=== PATIENT | female | born 1995 | race Caucasian/White ===

== ENCOUNTER 2019-10-07 13:39 | Outpatient (CLI) | payer SELFPAY ==
[2019-10-09 17:35] LABS: COVID-19 RT-PCR UVMMC Result Negative (Negative)
== END 2019-10-07 13:59 ==
PROVIDERS: PCP Pediatrics; Visit Provider Nurse Practitioner Adult Health
DX: Z11.59 Encounter for screening for other viral diseases (principal)
CPT/HCPCS: U0003

== ENCOUNTER 2020-02-13 14:36 | Outpatient (REF) | payer SELFPAY ==
[2020-02-14 01:35] LABS: COVID-19 RT-PCR UVMMC Result Negative (Negative)
== END 2020-02-13 14:56 ==
LOC: LBN 14:36
PROVIDERS: PCP Pediatrics; Visit Provider Nurse Practitioner Adult Health
DX: Z11.59 Encounter for screening for other viral diseases (principal)
CPT/HCPCS: U0003

== ENCOUNTER 2020-02-19 14:59 | Outpatient (REF) | payer SELFPAY ==
--- OUTSIDE RECORDS SUMMARY | 2020-02-19 15:03 | XMS_ITS ---
:1995 Author Care Team Providers Name Role Phone ALAN LEONARD Credit Cashier [phone] Allergies Code Code System Name Reaction Severity Status Onset NKDA ? Medications Name Status Start Date Stop Date ? ? amitriptyline 10 mg tablet Completed ? 12/03 Take 1 tablet every day by oral route. amitriptyline 25 mg tablet Completed ? 04/23 Take 1 tablet every day by oral route. bupropion HCl SR 100 mg tablet,12 hr sustained-release Completed ? 11/18/2017 Take 1 tablet every day by oral route in the evening. bupropion HCl XL 150 mg 24 hr tablet, extended release Completed ? 11/18/2017 Take 1 tablet every day by oral route. Depo-Provera 150 mg/mL intramuscular suspension Completed ? 04/23/2017 Inject 1 mL every 3 months by intramuscular route. Imitrex 25 mg tablet Completed ? 12/03/2016 Take 1 tablet by oral route as needed. Take one tablet at first sign of headac hes. May repeat once after one hour if headache persists. Loratadine-D 10 mg-240 mg tablet,extended release 24 hr Complete d ? 11/18/2017 Take 1 tablet every day by oral route. ProAir HFA 90 mcg/actuation aerosol inhaler Active ? Not available Inhale 2 puffs every 4 hours by inhalation route as needed. sumatriptan 50 mg tablet Completed ? 018 Take one table at onset headache, repeat once if headache persi sts. Zofran ODT 4 mg disintegrating tablet Completed ? 04/23/2017 Take 1 tablet every 6 hours by oral route as needed. Problems None recorded. Procedures None recorded. Results Lab Results Date Name Specimen Result Interpretation Description Value Range Status Address ? ? Rapid Flu ? Flu negative ? ? Main (A[facility]B) Office: [address], [place] ? Rapid Strep ? Strep negative ? ? [facility] Office: [address], [place] ? Urinalysis, ? Ph 5.0 ? ? Main Dipstick Office: [address], [place] ? ? ? Specific 1.020 ? ? Main [facility] Office: [address], [place] ? Vision Screen ? R Eye 20/20 ? ? [facility] Uncorrected Offic e: [address], [place] ? ? ? L Eye 20/20 ? ? Main Uncorrected Offic e: [address], [place] Past Encounters None recorded. Social History None recorded. Vaccine List Vaccine Type Td (adult), adsorbed 02/02/2018?0.5 mL Plan of Care Reminders Provider Appointments None ? ? recorded. Lab None ? ? recorded. Referral None ? ? recorded. Procedures None ? ? recorded. Surgeries None ? ? recorded. Imaging None ? ? recorded. Vitals 02/02/2018 01:00PM SICK VISIT Height 63 in 11/18/2017 02:30PM SICK VISIT Height Weight BMI 63 in 160 lbs 28.3 kg/m2 06/04/2017 09:00AM FOLLOW UP 30 Height Weight BMI Blood Pressure 63 in 156 lbs 16 oz 27.8 kg/m2 120/80 mm[Hg] 06/01/2017 10:45AM SICK VISIT Height Weight BMI 63 in 156 lbs 27.6 kg/m2 04/23/2017 10:15AM SICK VISIT Height Weight BMI 63 in 156 lbs 27.6 kg/m2 12/03/2016 09:45AM WELL CHILD EXAM Height Weight BMI Blood Pressure 63 in 147 lbs 26 kg/m2 120/80 mm[Hg] 2016 11:30AM FOLLOW UP 30 Weight 140 lbs 16 oz 09/09/2016 11:30AM FOLLOW UP 30 Weight Blood Pressure 139 lbs 16 oz 120/68 mm[Hg] 08/13/2016 09:30AM WCC 30 min Weight 138 lbs 07/08/2016 02:00PM SICK VISIT Weight 138 lbs 06/30/2016 09:30AM SICK VISIT Weight 138 lbs 09/11/2015 Height Weight BMI Blood Pressure 62.75 in 127 lbs 16 oz 22.9 kg/m2 100/60 mm[Hg] 05/18/2014 Height Weight BMI Blood Pressure 62.75 in 130 lbs 23.2 kg/m2 120/80 mm[Hg] 01/23/2010 Height Weight BMI Blood Pressure 58.25 in 122 lbs 16 oz 25.5 kg/m2 100/68 mm[Hg] 01/16/2009 Height Weight BMI Blood Pressure 55 in 97 lbs 16 oz 22.8 kg/m2 98/78 mm[Hg] 10/25/2007 Height Weight BMI Blood Pressure 51.5 in 80 lbs 16 oz 21.5 kg/m2 110/60 mm[Hg] 12/22/2006 Height Weight BMI Blood Pressure 49.25 in 55 lbs 16 oz 16.2 kg/m2 100/70 mm[Hg] 10/01/2005 Height Weight BMI Blood Pressure 47 in 51 lbs 16 oz 16.6 kg/m2 90/60 mm[Hg] 10/09/2004 Height Weight BMI Blood Pressure 45.25 in 46 lbs 15.8 kg/m2 90/72 mm[Hg] 09/17/2003 Height Weight BMI Blood Pressure 42.75 in 38 lbs 8 oz 14.8 kg/m2 92/64 mm[Hg] 09/27/2002 Height Weight BMI Blood Pressure 40.5 in 34 lbs 16 oz 15 kg/m2 88/70 mm[Hg] 04/26/2002 Height Weight BMI Blood Pressure 39.75 in 33 lbs 16 oz 15.1 kg/m2 90/70 mm[Hg]
== END 2020-02-19 15:19 ==
LOC: LBN 14:59
PROVIDERS: PCP Pediatrics; Visit Provider Nurse Practitioner Adult Health
DX: J10.1 Influenza due to other identified influenza virus with other respiratory manifestations (principal)
CPT/HCPCS: 87449

== ENCOUNTER 2020-03-21 20:15 | Outpatient (REF) | payer SELFPAY ==
[2020-03-22 21:39] LABS: COVID-19 RT-PCR UVMMC Result Negative (Negative)
== END 2020-03-21 20:16 | disposition home or self-care (01) ==
LOC: LBN 20:15
PROVIDERS: PCP Pediatrics; Visit Provider Nurse Practitioner Adult Health
DX: J10.1 Influenza due to other identified influenza virus with other respiratory manifestations (principal); Z20.822 Contact with and (suspected) exposure to COVID-19
CPT/HCPCS: 87449; U0003

== ENCOUNTER 2021-01-13 18:04 | Emergency (ER) | payer BC, SELFPAY ==
[2021-01-13] VITALS (38 sets, daily range): BP systolic 80–207; BP diastolic 51–182; PULSE 57–125; RESP 11–26; TEMP 37; O2SAT 96–100
--- NOTE | 2021-01-13 18:00 | RT.EKG_ITS ---
APPROVED REPORT Exam: Resting ECG Reason for Exam: chest pressure Patient Location: E HR:85 bpm ECG Measurements Heart Rate 85 AXIS NH 142 P 67 QRSd 77 QRS 80 QT 346 T 62 QTc 411 Conclusion Sinus arrhythmia...V-rate 68-106, variation>10% no acute ischemic findings
--- NOTE | 2021-01-13 18:15 | DI.RAD_ITS ---
Exam(s) XR CHEST 2V PA LATERAL EXAM: XR CHEST 2V PA LATERAL CLINICAL HISTORY: chest pain TECHNIQUE: 2D digital imaging was performed of the chest. Two images were obtained. PA and lateral views were obtained. COMPARISON: No exams were available for comparison FINDINGS: MEDIASTINUM: Normal. HEART: Normal. PULMONARY VASCULATURE: Normal. LUNGS: Clear. PLEURAL SPACE: No pleural effusion or pneumothorax. BONE:Within normal limits for the patient's age. OTHER FINDINGS:Normal. IMPRESSION: No acute pulmonary findings. DATA REPOSITORY: RADIATION DOSE DELIVERED:
--- NOTE | 2021-01-13 18:17 | ED.GENADUL_ITS ---
Discharge Plan Disposition Patient Disposition: AGAINST MEDICAL ADVICE Condition: Stable Discharge Details Clinical Impression: Chest pain, Abdominal pain Primary Care Provider: Unknown,Unknown ED Provider: Luis Carlos Santiago Home Meds and New Rx's Prescriptions: No Action No Known Home Meds RF: 0 Discharge Instructions Instructions: Chest Pain (ED) Additional Instructions: your blood work, ekg and xray studies did not show any significant abnormalities, you chose to leave prior to the cat scan results being back this could be your esophagus causing your pain such as an esophageal spasm follow up with your primary care provider within 1 week if you feel more ill, have severe worsening pain or difficulty breathing return to the emergency department Medical Decision Making 25 yo female with no chronic medical problems comes in with chest pain. She states she was at work sitting when about 30 minutes ago she had chest pressure. She states she experienced something similar a few days ago but wasn't as intense. Denies any fevers, cough, dyspnea, abdominal pain. She denies smoking, alcohol use or drug use. She is in no distress on exam speaking in full sentences. She has no rashes or other abnormalities of the chest wall. She localizes the pain to the anterior mid chest. She also states it radiates to the left arm. Denies back pain. She has no abdominal tenderness, has clear lung sounds and no murmurs. On bedside u/s she has no pericardial effusion and normal appearing ef of the left ventricle and no rv dilation. I suspect her symptoms could be esophageal spasm vs pleurisy vs possible pericarditis. She is wells low and perc negative. normal vascular exam and no tearing back pain so doubt dissec tion. Her heart score is 0, will obtain troponin. Will obtain cxr to evaluate for infiltrate and less likely pneumothorax. pt stable no significant change in pain with nitro and denies wanting any other pain medicine. Labs and xray unremarkable, will repeat troponin and ekg. given her low heart score if negative delta troponin/ecg feel she would be safe for outpatient management repeat troponin negative. She is now complaining of upper abdominal pain and states she doesn't think she can stand due to the pain. She also has nausea and she is now describing the pain as a tearing sensation. She is tender on exam now in the upper abdomen both sides, no guarding or rebound. Given her continued pain and now radiation into the abdomen will obtain cta to evaluate for dissection and possible cholecystitis patient returned from the ED and immediately requested d/c for family reasons. She has capacity to make her own decisions and understands risks of leaving prior to the imaging studies being read by radiology including possible and permanent disability and is willing to accept these risks. She is choosing to leave against my medical advise. She was advised to f/u with her pcp and she was also told she can return at any time if she changes her mind Differential Diagnosis Differential Diagnosis: esophageal spasm, nstemi, pleurisy Imaging Data Radiologic Study: Attestation: I personally reviewed and interpreted this imaging study as follows: Imaging: X-Ray Radiologist's impression: no acute findings Lab Data Lab results reviewed: Yes I reviewed the patient's lab results. ECG Data Attestation: I personally reviewed and interpreted this ECG (s) as follows: Prior ECG tracings: not available for review Interpretation: sinus rhythm, rate of 80, no acute st t wave ischemic findings 2nd ekg sinus rhythm, rate of 60, no acute st t wave ischemic findings HPI General Mode of arrival: ambulatory . Date/Time Provider Initiated Documentation: 01/13/21 18:10 . Limitations to Documentation: no limitations . Information obtained by: patient . History of Present Illness 25 year old F presents to the emergency department with the chief complaint of chest pain, described as moderate, with intensity rated at 6. Quality is described as other (pressure), and is localized to the chest. Patient reports no radiation. Patient started experiencing this minute(s) (30) and it has been intermittent. No relieving factors improve symptom(s), No exacerbating factors reported . Patient notes no other symptoms.. Patient did receive the following treatments prior to arrival, none Related Data Home Medications Medication Instructions Recorded Confirmed Unknown [No Known Home Meds] 01/13/21 01/13/21 Allergies Allergy/AdvReac Type Severity Reaction Status Date / Time No Known Allergies Allergy Unverified 01/13/21 18:18 Review of Systems All systems reviewed & are unremarkable except as noted in HPI and below Constitutional Constitutional: Denies chills, Denies fever(s) and Denies weakness Cardiovascular Cardiovascular: Denies dyspnea Respiratory Respiratory: Denies cough and Denies dyspnea Gastrointestinal Gastrointestinal: Denies abdominal pain, Denies nausea and Denies vomiting Musculoskeletal Musculoskeletal: Denies joint swelling Neurologic Neurologic: Denies weakness [facility] Active Problem List (Updated 01/13/21 @ 22:33 by Luis Carlos Santiago MD) Chest pain (Acute) Abdominal pain (Acute) Surgical History (Updated 01/13/21 @ 18:19 by Zulma Robles) History of cholecystectomy History of tonsillectomy Family History (Updated 08/30/20 @ 14:42 by Alla Serrano) Mother Depression Father Depression High cholesterol Sister Alcohol abuse Asthma Depression Substance abuse Sister Asthma Depression Substance abuse Brother Alcohol abuse Asthma Substance abuse Maternal Grandfather No problems noted. Paternal Grandfather Alcohol abuse Maternal Grandmother No problems noted. Paternal Grandmother Depression Social History (Updated 08/30/20 @ 14:40 by Alla Serrano) Smoking/Tobacco Use Status: Current every day Tobacco Type: e-cigarettes Tobacco: How many years used: 6 Quit status: has quit before Second Hand Exposure: Yes Smoking risk assessment performed?: Yes Alcohol Intake: current Alcohol Intake frequency: a few times a month Alcohol type: beer Drug use: Never Substance use type: does not use Caregiver/Support person: No Household members: significant other Communication Needs: None Pets and animals: Yes Pets and animals: cat(s) and dog(s) Sexually active: Yes Do you think of yourself as: lesbian/pena/homosexual Current gender identity: female What is your relationship status?: living with partner How often do you talk on the phone with friends or family?: twice per week How often do you get together with friends or relatives?: once per week Do you belong to any clubs or organized social groups?: no Panel score (0-1 are the most socially isolated patients): 2 Ghazala/Restorationism: No preference Seatbelt use: always Helmet use: Yes Helmet use: always Drive intox or ride w/intox car pick up driver: No Do you feel safe at home: Yes Do you feel safe in your relationship?: Yes Exam Const General: no acute distress Orientation: alert HENMT Head: normal to inspection Ears: external ears normal General nose exam: external nose normal Mouth: moist mucous membranes Eyes General: appearance normal, both eyes and all related structures Neck Neck: normal visual inspection Chest Chest: normal inspection of the chest Resp Effort & Inspection: normal respiratory effort and able to speak in complete sentences Cardio Rate: regular rate GI Palpation: soft and nontender Skin General skin exam: no rashes or lesions noted Neuro General: patient alert and patient oriented x3 Extrem General: normal to inspection Psych Mental Status: mental status grossly normal
[2021-01-13] MEDS: nitroGLYcerin 0.4 MG TAB SL (18:35)
[2021-01-13 18:46] LABS: Abs Immature Grans 0.02 10^3/uL (0.0-0.06); Absolute Basophil Count 0.04 10^3/uL (0.0-0.2); Absolute Eosinophil Count 0.15 10^3/uL (0.0-0.7); Absolute Monocyte Count 0.76 10^3/uL (0.1-0.8); Absolute Neutrophil Count 4.48 10^3/uL (1.2-6.7); Basophils % 0.5; Eosinophils % 1.7; HCT 39.3 % (36.0-46.0); HGB 13.2 g/dL (11.2-15.7); Immature Grans % 0.2; MCH 28.3 pg (27.0-33.0); MCHC 33.6 % (32.0-36.0); MCV 84.2 fL (80-95); MPV 10.9 fL (8.0-11.0); Monocytes % 8.8; Neutrophils % 51.8; Nucleated RBC 0 %; Platelet Count 263 10^3/uL (130-400); RBC 4.67 10^6/uL (3.93-5.22); RDW 11.8 % (11.7-14.6); RDW-SD 35.8 fL; WBC 8.65 10^3/uL (4.4-10.8)
[2021-01-13 18:47] LABS: Lipase 117 U/L (73-393)
--- NOTE | 2021-01-13 19:49 | SUR.PHASEI ---
pt c/o midsternal chestpain pt given nitro sl times one
--- NOTE | 2021-01-13 19:51 | DI.VRAD_ITS ---
PROCEDURE INFORMATION: Exam: XR Chest Exam date and time: 01/13/2021 6:27 PM Age: 25 years old Clinical indication: Chest pressure; Patient HX: Chest pain, pressure TECHNIQUE: Imaging protocol: XR of the chest. Views: 2 views. COMPARISON: No relevant prior studies available. FINDINGS: Lungs: The lungs are clear. There is no pulmonary vascular congestion. Pleural spaces: There are no pleural effusions present. There is no evidence of pneumothorax. Heart/Mediastinum: The cardiomediastinal silhouette is within normal limits. Bones/joints: Unremarkable. IMPRESSION: No active cardiopulmonary disease identified. Dictated and Authenticated by: Attila العراقي MD. Ordering:HUMBERTO Aldridge MD
[2021-01-13 20:06] LABS: ALT 28 U/L (14-59); AST 13 U/L (15-37); Albumin 4.3 g/dL (3.4-5.0); Alkaline Phosphatase 60 U/L (46-116); Anion Gap 11.5 mmol/L (3-11); BUN 14 mg/dL (7-18); Bilirubin, Total 0.4 mg/dL (0.2-1.0); CO2 25.5 mmol/L (21.0-32.0); CREATININE 0.7 mg/dL (0.55-1.02); Calcium 9.4 mg/dL (8.5-10.1); Chloride 103 mmol/L (98-107); Glucose 100 mg/dL (74-106); Magnesium 1.9 mg/dL (1.8-2.4); Potassium 3.4 mmol/L (3.5-5.1); Sodium 140 mmol/L (136-145); Total Protein 8.4 g/dL (6.4-8.2)
--- NOTE | 2021-01-13 20:07 | SUR.PHASEI ---
pt states no relief from nitro sl
[2021-01-13 20:08] LABS: Troponin I < 0.05 ng/mL (<0.06)
--- NOTE | 2021-01-13 21:15 | RT.EKG_ITS ---
APPROVED REPORT Exam: Resting ECG Reason for Exam: chest pain Patient Location: E HR:58 bpm ECG Measurements Heart Rate 58 AXIS HI 151 P 51 QRSd 80 QRS 72 QT 414 T 60 QTc 407 Conclusion Sinus bradycardia...rate< 60
[2021-01-13 21:52] LABS: Troponin I < 0.05 ng/mL (<0.06)
--- NOTE | 2021-01-13 22:00 | DI.CT_ITS ---
Exam(s) CT THORAX ABD/PEL CTA EXAM: CT THORAX ABD/PEL CTA CLINICAL HISTORY: chest pain radiating into abdominal TECHNIQUE: Imaging Protocol: Axial computed tomography images with coronal and sagittal reformatted images were created and reviewed CONTRAST MATERIAL: Intravenous: Omnipaque 350 Contrast volume:61 mL Oral: No COMPARISON: No exams were available for comparison FINDINGS: CHEST: Tracheobronchial tree: Patent where visualized. Pulmonary parenchyma: No consolidation or dominant measurable mass. No architectural distortion. Visualized thyroid gland: Unremarkable. Mediastinum and Deborah: No dominant adenopathy or fluid collection. There is soft tissue in the anterio r mediastinum likely reflecting residual thymus. The esophagus is unremarkable. Pleura: No effusion or pneumothorax. Heart: The heart is not dilated. No coronary artery calcifications are seen. No pericardial effusion. Pulmonary arteries are not adequately opacified for evaluation of possible emboli. Aorta: Thoracic aorta non-dilated. No evidence of dissection. Lymph nodes: Within normal limits. Soft tissues: Unremarkable. Bones:Within normal limits for the patient's age. ABDOMEN: Liver: Normal density. No measurable mass. Portal, Superior Mesenteric, and Splenic Veins: Unremarkable. Gallbladder and Biliary Tract: Status post cholecystectomy. No biliary ductal dilatation. Pancreas: Normal density, no abnormal calcifications or inflammatory process. Spleen: Normal. Adrenals: No masses seen. Kidneys: Normal size, contour and axis. No radiodense stones or obstructive uropathy. No masses seen. Abdominal Aorta: Abdominal portion non-dilated. No evidence of dissection. Celiac axis, mesenteric a rteries, renal arteries and iliac vessels are unremarkable. Bowel: No obstruction or bowel wall thickening. Appendix is unremarkable. There is mild hyperenhancem ent of the wall of the terminal ileum and a few loops of small bowel proximally. This may represent a mild enteritis. Peritoneal Cavity: No ascites, collection or mesenteric inflammatory response. No free air. Lymph Nodes: Within normal limits. Bones: Within normal limits for the patient's age. Soft Tissues: Unremarkable. PELVIS: Bladder: Symmetric distention, no gross wall thickening. Reproductive Organs: Unremarkable as visualized. Lymph Nodes: Within normal limits. Bones: Within normal limits. IMPRESSION: 1. Question mild distal enteritis. Please correlate clinically. 2. Unremarkable CT scan of the chest. RADIATION DOSE DELIVERED: 994.06mGy.cm Total DLP DATA REPOSITORY: All CT scans at this facility are submitted to the National Radiology Data Registry (NRDR) Dose Index Registry (DIR) with the [employer] (ACR). RADIATION OPTIMIZATION: All CT scans at this facility use at least one of these dose optimization te chniques: automated exposure control; mA and/or kV adjustment per patient size (includes targeted exa ms where dose is matched to clinical indication); or iterative reconstruction.
[2021-01-13] MEDS: Prochlorperazine 10 MG/2 ML VIAL IVP (22:06)
[2021-01-13] MEDS: Omnipaque 350 MG/ML 100 ML BTL IJ (22:10)
--- NOTE | 2021-01-13 23:09 | DI.VRAD_ITS ---
PROCEDURE INFORMATION: Exam: CTA Chest With Contrast Exam date and time: 01/13/2021 10:02 PM Age: 25 years old Clinical indication: Chest pressure; Abdominal pain; Generalized; Prior surgery; Surgery date: 6+ months; Surgery type: Cholecystectomy; Patient HX: Chest pain radiating into abdominal TECHNIQUE: Imaging protocol: Computed tomographic angiography of the chest with contrast. 3D rendering (Not supervised by radiologist): MIP and/or 3D reconstructed images were created by the technologist. Radiation optimization: All CT scans at this facility use at least one of these dose optimization techniques: automated exposure control; mA and/or kV adjustment per patient size (includes targeted exams where dose is matched to clinical indication); or iterative reconstruction. Contrast material: OMNIPAQUE 350; Contrast route: INTRAVENOUS (IV); COMPARISON: CR XR CHEST 2V PA LATERAL 01/13/2021 7:17 PM FINDINGS: Pulmonary arteries: Evaluation for pulmonary embolism is very limited due to poor contrast opacification of the central pulmonary arteries. No clear central pulmonary embolism is identified. Aorta: There is no evidence for thoracic aortic aneurysm or dissection. Lungs: Unremarkable. No consolidation. No masses. Pleural spaces: There are no pleural effusions present. Heart: Unremarkable. No cardiomegaly. No pericardial effusion. Mediastinal space: There is mild wedge-shaped increased attenuation within the anterior mediastinum anterior to the aortic arch, suggesting mild residual thymic tissue. Lymph nodes: There is no evidence of lymphadenopathy. Bones/joints: Unremarkable. No acute fracture. Soft tissues: Unremarkable. IMPRESSION: 1. No acute thoracic process identified. 2. No evidence for aortic dissection or aneurysm. PROCEDURE INFORMATION: Exam: CTA Abdomen and Pelvis With Contrast Exam date and time: 01/13/2021 10:02 PM Age: 25 years old Clinical indication: Chest pressure; Abdominal pain; Generalized; Prior surgery; Surgery date: 6+ months; Surgery type: Cholecystectomy; Patient HX: Chest pain radiating into abdominal TECHNIQUE: Imaging protocol: Computed tomographic angiography of the abdomen and pelvis with contrast material. 3D rendering (Not supervised by radiologist): MIP and/or 3D reconstructed images were created by the technologist. Radiation optimization: All CT scans at this facility use at least one of these dose optimization techniques: automated exposure control; mA and/or kV adjustment per patient size (includes targeted exams where dose is matched to clinical indication); or iterative reconstruction. Contrast material: OMNIPAQUE 350; Contrast volume: 61 ml; Contrast route: INTRAVENOUS (IV); COMPARISON: CR XR CHEST 2V PA LATERAL 01/13/2021 7:17 PM FINDINGS: Aorta: There is no evidence for abdominal aortic aneurysm or dissection. No atherosclerotic calcification is identified. Celiac trunk and mesenteric arteries: No occlusion or significant stenosis. Renal arteries: No occlusion or significant stenosis. Right iliac arteries: No occlusion or significant stenosis. Left iliac arteries: No occlusion or significant stenosis. Liver: No mass. Gallbladder and bile ducts: There has been a cholecystectomy. Pancreas: Unremarkable. No mass. No ductal dilation. Spleen: Unremarkable. No splenomegaly. Adrenal glands: Unremarkable. No mass. Kidneys and ureters: Unremarkable. No solid mass. No hydronephrosis. Stomach and bowel: There may be mild hyperenhancement of the wall of the terminal ileum as well as a few loops of ileum just proximal to this which could represent mild enteritis. There is scattered distal colonic diverticula without evidence for acute diverticulitis Appendix: The appendix is visualized and appears normal. Intraperitoneal space: Unremarkable. No free air. No significant fluid collection. Lymph nodes: Unremarkable. No enlarged lymph nodes. Urinary bladder: Unremarkable. No mass. Reproductive: Unremarkable as visualized. 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 There is a transitional vertebra at lumbosacral junction. Soft tissues: Unremarkable. IMPRESSION: 1. Cannot exclude mild distal enteritis, as described above. Recommend clinical correlation. 2. Status post cholecystectomy. 3. No abdominal aortic aneurysm or dissection identified. 4. Scattered distal colonic diverticula without evidence for acute diverticulitis. Dictated and Authenticated by: Attila العراقي MD. Ordering:HUMBERTO Aldridge MD
== END 2021-01-13 22:34 | disposition left against medical advice (07) ==
PROVIDERS: Emergency Provider Emergency Medicine
DX: R07.89 Other chest pain (principal); R10.10 Upper abdominal pain, unspecified; Z53.29 Procedure and treatment not carried out because of patient's decision for other reasons; R11.0 Nausea
CPT/HCPCS: 36415; 74177; 80053; 83690; 93005; 96374; 99285; 71046; 83735; 84484; 85025; 93010; 99284; J0780; J3490

== ENCOUNTER 2021-06-17 16:41 | Outpatient (REF) | payer BC, SELFPAY ==
--- NOTE | 2021-06-17 13:40 | PAPFT_PTH ---
PATIENT: Christal Dawson LOC: [facility] U#:[id number] AGE/SX: 25/F ROOM: RE06/17/[address]: Sonia Jacobs, PhD CODE AND TEST CLERK : 1995 BED: DIS: 06/17/2021 SPEC #: [id number] RECD: 06/18/21 12:33 STATUS: ISAIAH COSTA #: [id number] ASA: 06/17/21 13:[address]: Sonia Jacobs DEPT: [facility] Cytology RECD BY: Little Jaquez Tissues: 1 - CX/ENDOCX FOR PAP SMEARS Procedures: PAP THIN PREP/[facility] Screening Comments: [id number] (CHLAMYDIA/GC)
[2021-06-20 16:39] LABS: Chlamydia Result Negative (Negative); GC Result Negative (Negative)
== END 2021-06-17 16:42 | disposition home or self-care (01) ==
LOC: LBN 16:41
PROVIDERS: PCP Nurse Practitioner; Visit Provider Nurse Practitioner
DX: Z11.3 Encounter for screening for infections with a predominantly sexual mode of transmission (principal); Z12.4 Encounter for screening for malignant neoplasm of cervix
CPT/HCPCS: 87491; 87591; 88142

== ENCOUNTER 2021-07-29 02:41 | Outpatient (CLI) | payer BC, SELFPAY | END 2021-07-29 02:42 | disposition home or self-care (01) | LOC: RT 02:41 | PROVIDERS: PCP Nurse Practitioner; Visit Provider Family Medicine ==

== ENCOUNTER 2022-11-10 02:50 | Outpatient (CLI) | payer BC, SELFPAY ==
[2022-11-10 14:47] LABS: HCT 39.2 % (36.0-46.0); HGB 13.2 g/dL (11.2-15.7); MCH 27.4 pg (27.0-33.0); MCHC 33.7 % (32.0-36.0); MCV 82 fL (80-95); MPV 10.3 fL (8.0-11.0); Platelet Count 300 10^3/uL (130-400); RBC 4.81 10^6/uL (3.93-5.22); RDW-SD 35.9 fL; WBC 10.04 10^3/uL (4.4-10.8)
[2022-11-10 15:09] LABS: Hemoglobin A1C 5.4 % (<5.7)
[2022-11-10 16:07] LABS: Anion Gap 8.8 mmol/L (3-11); BUN 15 mg/dL (7-18); CO2 28.2 mmol/L (21.0-32.0); CREATININE 0.7 mg/dL (0.55-1.02); Chloride 103 mmol/L (98-107); Estimated GFR 123.01 (mL/min/1.73m2); Glucose 86 mg/dL (74-106); Potassium 4.4 mmol/L (3.5-5.1); Sodium 140 mmol/L (136-145); TSH (W/Ref FT4) 1.15 uIU/mL (0.36-3.74)
== END 2022-11-10 02:51 | disposition home or self-care (01) ==
LOC: LBO 02:51
PROVIDERS: PCP Nurse Practitioner Family; Visit Provider Nurse Practitioner Family
DX: R63.5 Abnormal weight gain (principal); R00.2 Palpitations; R07.89 Other chest pain; R22.1 Localized swelling, mass and lump, neck; R55 Syncope and collapse; Z13.1 Encounter for screening for diabetes mellitus
CPT/HCPCS: 36415; 80048; 85027; 83036; 84443

== ENCOUNTER 2022-11-13 08:15 | Outpatient (RCR) | payer BC, SELFPAY ==
--- NOTE | 2022-11-13 08:15 | HOLTER_ITS ---
APPROVED REPORT Conclusion This is a 48-hour Holter monitor ordered for palpitations Rhythm throughout is sinus with an average heart rate of 93. Minimum was 59, maximum 159 There was an isolated ventricular ectopic beat There were no supraventricular dysrhythmias, no high-grade AV block, no pauses greater than 3 seconds No symptoms were reported
== END 2022-11-14 23:59 | disposition home or self-care (01) ==
LOC: CARDOPNVT 08:15
PROVIDERS: PCP Nurse Practitioner Family; Visit Provider Nurse Practitioner Family
DX: R07.89 Other chest pain (principal); R00.2 Palpitations
CPT/HCPCS: 93225

== ENCOUNTER → 2022-11-16 01:37 | Outpatient (CLI) | payer BC, SELFPAY ==
--- NOTE | 2022-11-16 07:15 | DI.US_ITS ---
APPROVED REPORT EXAM: Comprehensive 2D, Doppler, and color-flow Echocardiogram Patient Location: Out-Patient Associate Professor Of Geology: Norberto Flores RDCS (AE) Indications: chest pressure, palpitations, presyncope Other Information Study Quality: Good Conclusion Normal left ventricular wall thickness and chamber size. Ejection fraction is 55 to 60%. Wall motio n is normal Normal right ventricular size and systolic function Both atria are normal in size Aortic valve is trileaflet with trace regurgitation Estimated right ventricular systolic pressure is 17 mmHg Wall motion Left Ventricle The left ventricle is normal size. The left ventricular systolic function is normal. The left ventric ular ejection fraction is within the normal range. There is normal left ventricular wall thickness. T here is normal LV segmental wall motion. There is no ventricular septal defect visualized. LVEF is 55 -60%. Right Ventricle The right ventricle is normal size. The right ventricular systolic function is normal. The RVSP is 17 .2 mmHg. Atria The left atrium size is normal. The right atrium size is normal. Aortic Valve The aortic valve is normal in structure. Aortic valve is trileaflet. There is no aortic valvular sten osis. Trace aortic regurgitation. Mitral Valve The mitral valve is normal in structure. No evidence of mitral valve stenosis. There is no mitral doni ve regurgitation noted. Tricuspid Valve The tricuspid valve is normal in structure. There is no tricuspid valve stenosis. There is no tricusp id valve regurgitation noted. Pulmonic Valve The pulmonary valve is normal in structure. There is no pulmonic valvular stenosis. Mild pulmonic reg urgitation. Great Vessels The aortic root is normal in size. The ascending aorta is normal in size. Aortic arch is normal in ca liber. IVC is normal in size and collapses >50% with inspiration. Pericardium There is no pericardial effusion. 2D Dimensions IVSD d PLAX 0.69 cm F: 0.6-1.0 Ao Root d 2.90 cm F: 2.7 - 3.3 LVPW d PLAX 0.69 cm F: 0.6 - 1.0 Ao Asc Diam d 3.13 cm F: 2.3 - 3.1 LVID d PLAX 4.57 cm F: 3.8 - 5.2 LVDs 3.14 cm F: 2.2 - 3.5 LV EF Teichholz 59.2 % FS 31.33 % LV EDV (Teich) 95.7 mL LV ESV (Teich) 39.0 mL Stroke Vol Index (Teich) 33.96 M-Mode TAPSE 2.03 cm (M/F) >1.7 Auto EF LV EDV A4C 112.2 mL LV EDV A2C 110.7 mL LV EDV BP 112.8 mL LV ESV A4C 47.8 mL LV ESV A2C 48.7 mL LV ESV BP 48.0 mL LVEF(%) A4C 57.4 % LVEF(%) A2C 56.0 % LVEF(%) BP 57.5 % LV SV A4C 64.4 ml LV SV A2C 62.0 ml LV SV BP 64.8 ml LV CO A4C 3.5 L/min LV CO A2C 3.4 L/min LV CO BP 3.5 L/min HR A4C 54.96 BPM HR A2C 54.80 BPM LV EDV Index (BP) LA Volume LA Length A4C 3.5 cm LA Length A2C LA Area A4C s 11.18 cm2 LA Area A2C s LA Vol A4C A-L 30.34 mL LA Vol A2C A-L LA Vol Biplane A-L LA Vol A4C MOD 26.9 mL LA Vol A2C MOD LA Vol BP MOD RA Volume RA Area A4C 4.9 cm2 RA ESV A4C (A-L) 7.4mL RA Vol/BSA A4C A-L RA Length A4C 2.8 cm RA ESV A4C (MOD) 7.2mL LV Diastology MV E' medial 0.106 (>0.07 m/s) MV E Vmax 0.92 (0.4-1.3 m/s) MV E/E' MED 8.72 (<14) MV A Vmax 0.80 (0.4-1.3 m/s) MV E' lateral 0.139 (>0.1 m/s) E/A Ratio 1.1 MV E/E' LAT 6.65 (<14) MV E' Average 0.122 m/s MV E/E'(average) 7.54 Aortic Valve AoV Vmax 1.16 m/s LVOT Vmax 1.01 m/s AoV Peak Grad 5.3 mmHg LVOT Peak Grad 4.1 mmHg AoV Area (Vmax) 2.69 cm2 LVOT VTI 0.226 m AoV VTI 0.259 m LVOT Mean Grad 2.1 mmHg AoV Mean Daniele. 0.89 m/s LVOT SV 69.43 mL AoV Mean Grad 3.4 mmHg LVOT Diam s 1.95 cm AoV Area (VTI) 2.68 cm2 Velocity Ratio 0.87 Mitral Valve MV DT 88 (160-240 msec) Pulmonary Valve PV Vmax 1.06 (0.5-1.5 m/s) RVOT Vmax 0.81 m/s PV Peak Grad 4.5 mmHg RVOT Peak Gr. 2.6 mmHg PV Mean Daniele 0.77 m/s RVOT VTI 0.176 m PV Mean Grad 2.6 mmHg RVOT Mean Gr. 1.4 mmHg Tricuspid Valve RA Pressure 3.00 mmHg TR Vmax 1.89 m/s TR Peak Grad 14.2 mmHg RVSP (TR) 17.2 mmHg
== END ==
PROVIDERS: PCP Nurse Practitioner Family; Visit Provider Nurse Practitioner Family
DX: R07.89 Other chest pain (principal); R55 Syncope and collapse
CPT/HCPCS: 93306

== ENCOUNTER 2022-11-19 13:50 | Outpatient (CLI) | payer BC, SELFPAY ==
--- NOTE | 2022-11-19 13:45 | RT.EKG_ITS ---
APPROVED REPORT Exam: Resting ECG Reason for Exam: palpitations Patient Location: O HR:89 bpm ECG Measurements Heart Rate 89 AXIS FL 132 P 75 QRSd 82 QRS 64 QT 404 T 26 QTc 492 Conclusion Sinus rhythm...normal P axis, V-rate 50- [address]-T abnormalities
== END 2022-11-19 13:51 | disposition home or self-care (01) ==
LOC: DI.CM 13:51
PROVIDERS: PCP Nurse Practitioner Family; Visit Provider Nurse Practitioner Family
DX: R00.2 Palpitations (principal)
CPT/HCPCS: 93010

== ENCOUNTER 2022-11-19 15:04 | Emergency (ER) | payer BC, SELFPAY ==
[2022-11-19] VITALS (13 sets, daily range): BP systolic 101–116; BP diastolic 51–84; PULSE 61–94; RESP 14–21; TEMP 36.8–37.1; O2SAT 98–100
--- NOTE | 2022-11-19 14:45 | RT.EKG_ITS ---
APPROVED REPORT Exam: Resting ECG Reason for Exam: tachycardia Patient Location: E HR:76 bpm ECG Measurements Heart Rate 76 AXIS OK 140 P 51 QRSd 84 QRS 55 QT 370 T 33 QTc 418 Conclusion Sinus rhythm...normal P axis, V-rate 60- 99 sinus rhythm, normal axis, normal intervals, non ischemic
--- NOTE | 2022-11-19 15:10 | ED.GENADUL_ITS ---
Discharge Plan Disposition Patient Disposition: Home Discharge Details Clinical Impression: Tachycardia, UTI (urinary tract infection) Primary Care Provider: Amber Parsons ED Provider: Roldan Gentile Home Meds and New Rx's Prescriptions: New cefpodoxime 100 mg tablet 100 mg PO BID 7 Days Qty: 14 0RF Rx Instructions: must administer with a meal/food No Action bupropion HCl 300 mg tablet extended release 24 hr 300 mg PO QAM Qty: 90 3RF sumatriptan succinate [Imitrex] 100 mg tablet 100 mg PO .COMPLEX PRN (Reason: migraine headache) Qty: 30 1RF Rx Instructions: take 1 tab at onset of headache; if no relief, may repeat 1 tab after at least 2 hrs; max = 2 tabs/24 hrs PO Discharge Instructions Instructions: Urinary Tract Infection in Women (ED), Tachycardia (ED) Additional Instructions: Please follow-up closely with [facility] cardiology. Please return to the emergency department for any worsening symptoms Medical Decision Making 27-year-old female presents with acute on chronic palpitations and presyncopal sensation, syncopized from a sitting position at work yesterday, was evaluated at [facility], negative CT chest, patient had electrolytes repleted, recent echocardiogram and Holter monitor results unremarkable; patient has no history of thromboembolic disease or coronary disease. Experienced tachycardia when sitting up and when active, relieved with rest, also experiencing dyspnea on exertion. Patient currently resting comfortably no acute distress sinus rhythm normal axis normal intervals no ischemic changes or ectopy noted on EKG or monitor. Will perform basic labs, troponin, magnesium, TSH, U tox, urinalysis, given recent negative PE study/CT chest will hold further imaging at this time. Patient will benefit greatly from cardiology referral consider loop recorder for more sensitive/long-term rate and rhythm monitoring. Consider postural hypotension with tachycardia versus dehydration versus electrolyte abnormality versus less likely CHF myocarditis or pericarditis versus less likely ACS PE or aortic pathology 15: 38 patient just stood up to urinate became tachycardic and symptomatic tachycardia to the 120s. Narrow complex and regular on monitor. Resolved now that she is seated/laying back down. 16: 53 patient resting actively no acute distress hemodynamically stable normal sinus rhythm on monitor normotensive. Evidence of nitrate positive UTI. Will start cefpodoxime. Bedside echocardiogram showing normal cardiac contractility, normal-appearing valvular structures, no pericardial thickening or pericardial fluid appreciated, normal ventricular ratios. Patient be given [facility] cardiology referral. High clinical suspicion for POTS. Given home care instructions and return HPI General Date/Time Provider Initiated Documentation: 11/19/22 15:09 . HPI Narrative: 27-year-old female presents with 1 year of intermittent presyncope/syncopal episodes associated with rapid heart rate acutely worse over the last several days characterized by noticeable palpitations lightheadedness and 1 episode of syncope from a seated position, patient was evaluated at [facility] underwent CT imaging of the chest which was negative for PE, had recent Holter monitor which was negative for arrhythmia found patient to be in sinus tachycardia several times, also had a recent negative echocardiogram; denies chest pain however notices her heart rate increasing greatly when she sits up or performs activity, also has been experiencing dyspnea on exertion. No history of thromboembolic disease no history of coronary artery disease. Patient works as a production control planner and her partner has recently given to their child who is a couple months old besides these life events she endorses no new psychosocial stressors Related Data Home Medications Medication Instructions Recorded Confirmed bupropion HCl 300 mg 24 hr tablet, 300 mg PO QAM #90 tabs 08/03/22 10/27/22 extended release sumatriptan succinate 100 mg 100 mg PO .COMPLEX PRN migraine 08/03/22 10/27/22 tablet (Imitrex) headache #30 tabs cefpodoxime 100 mg tablet 100 mg PO BID 7 days #14 tabs 11/19/22 Previous Rx's Medication Instructions Recorded bupropion HCl 300 mg 24 hr tablet, 300 mg PO QAM #90 tabs 08/03/22 extended release sumatriptan succinate 100 mg 100 mg PO .COMPLEX PRN migraine 08/03/22 tablet (Imitrex) headache #30 tabs cefpodoxime 100 mg tablet 100 mg PO BID 7 days #14 tabs 11/19/22 Allergies Allergy/AdvReac Type Severity Reaction Status Date / Time prochlorperazine AdvReac Intermediate Other (See Verified 11/19/22 13:10 [From Compazine] Comment) General Stated Complaint: GenMedical FRANKI: 3 Review of Systems Narrative: Review of Systems Constitutional: negative Eyes: negative ENT: negative Cardiovascular: Palpitations, dyspnea on exertion, presyncope Respiratory: negative Gastrointestinal: negative : negative Musculoskeletal: negative Skin: negative Neurologic: negative Psych: negative PFSH All Active Problems (Updated 11/19/22 @ 16:55 by Roldan Gentile MD) Tachycardia (Acute) UTI (urinary tract infection) (Acute) Chest pressure (Acute) Weight gain (Acute) Migraine headache with aura (Acute) Pre-syncope (Acute) Rash and nonspecific skin eruption (Acute) Mood disorder (Acute) Surgical History History of cholecystectomy History of tonsillectomy Family History Mother Depression Father Depression High cholesterol Sister Alcohol abuse Asthma Depression Substance abuse Sister Asthma Depression Substance abuse Brother Alcohol abuse Asthma Substance abuse Maternal Grandfather No problems noted. Paternal Grandfather Alcohol abuse Maternal Grandmother No problems noted. Paternal Grandmother Depression Social History (Updated 08/07/22 @ 11:58 by Estrella Resendez) Smoking/Tobacco Use Status: Current every day Tobacco Type: e-cigarettes Tobacco: How many years used: 5 Quit status: not considering quitting Second Hand Exposure: Yes Smoking risk assessment performed?: Yes Alcohol Intake: current Alcohol Intake frequency: a few times a month Alcohol type: beer Drug use: Never Substance use type: does not use Caregiver/Support person: No Household members: significant other Housing: house Communication Needs: None Do you need help understanding health information?: Never Pets and animals: Yes Pets and animals: cat(s) and dog(s) Sexually active: Yes Do you think of yourself as: lesbian/pena/homosexual Current gender identity: female What is your relationship status?: How often do you talk on the phone with friends or family?: three or more times per week How often do you get together with friends or relatives?: twice per week How often do you attend jain or taoism services?: decline to answer Do you belong to any clubs or organized social groups?: no Panel score (0-1 are the most socially isolated patients): 2 What type of physical activity do you participate in: walking Duration: 45-60 minutes/day Frequency: 3-4 times per week Ghazala/Uatsdin: No preference Special ghazala needs: No Seatbelt use: always Helmet use: Yes Helmet use: always Drive intox or ride w/intox stake driver: No Do you feel safe at home: Yes Do you feel safe in your relationship?: Yes Exam Narrative Exam Narrative: Physical Examination General: alert, awake, cooperative, resting comfortably, no acute distress HEENT: normocephalic, atraumatic; PERRL, EOM intact, conjunctiva normal; no nasal discharge; moist mucous membranes, oral and pharyngeal mucosa normal, tolerating secretions Neck: supple, trachea midline; full ROM Chest: normal to inspection Respiratory: normal respiratory effort, speaking in full sentences, clear to auscultation, no wheezing, rales or rhonchi Cardiac: regular rate, regular rhythm, S1S2 intact, no murmurs rubs or gallops GI: abdomen soft, non-tender, non-distended; no palpable mass or hepatosplenomegaly Skin: no lesions, rashes or trauma appreciated Neuro: AAOx3, normal speech, moving all extremities Extremities: No peripheral edema Psych: Appropriate mood and affect Course Vital Signs Vital signs: Vital Signs Temperature 36.8 C 11/19/22 14:55 Pulse 90 11/19/22 14:55 Respiratory Rate 18 11/19/22 14:55 Blood Pressure 111/51 L 11/19/22 14:55 Pulse Oximetry 100 11/19/22 14:55 Temperature 37.1 C 11/19/22 15:00 Pulse 91 H 11/19/22 15:00 Respiratory Rate 18 11/19/22 15:01 Respiratory Effort Normal, Non-Labored 11/19/22 15:01 Respiratory Depth Normal 11/19/22 15:01 Respiratory Pattern Normal 11/19/22 15:01 Blood Pressure 111/84 11/19/22 15:00 Blood Pressure Position Supine 11/19/22 15:00 Pulse Oximetry 100 11/19/22 15:00 Oxygen Delivery Method Room Air 11/19/22 15:00 Oxygen Flow Rate 0 11/19/22 14:55 Pain Level 0 11/19/22 15:00
[2022-11-19 15:37] LABS: Abs Immature Grans 0.07 10^3/uL (0.0-0.06); Absolute Lymphocyte Count 3.93 10^3/uL (1.2-3.4); Absolute Neutrophil Count 11.58 10^3/uL (1.2-6.7); Basophils % 0.4; Eosinophils % 0.2; HCT 41.3 % (36.0-46.0); Immature Grans % 0.4; Lymphocytes % 23.5; MCH 27.5 pg (27.0-33.0); MCHC 33.9 % (32.0-36.0); MCV 81 fL (80-95); MPV 10.6 fL (8.0-11.0); Monocytes % 6.3; Neutrophils % 69.2; Platelet Count 361 10^3/uL (130-400); RBC 5.09 10^6/uL (3.93-5.22); RDW 12.1 % (11.7-14.6); RDW-SD 35.8 fL; WBC 16.74 10^3/uL (4.4-10.8)
[2022-11-19 15:38] LABS: Absolute Basophil Count 0.07 10^3/uL (0.0-0.2); Absolute Eosinophil Count 0.03 10^3/uL (0.0-0.7); Absolute Monocyte Count 1.05 10^3/uL (0.1-0.8)
[2022-11-19] MEDS: Normal Saline 1,000 ML 1000 ML IV (15:40)
[2022-11-19 15:51] LABS: Bilirubin Negative (Negative); Blood Negative (Negative); Clarity Clear (Clear); Glucose Negative (Negative); Ketones 15 mg/dL (Negative); Leukocyte Esterase Negative (Negative); Nitrite Positive (Negative); Specific Gravity 1.015 (1.005-1.025); Urobilinogen 0.2 mg/dL (Up to 0.2)
[2022-11-19 15:53] LABS: Prothrombin Time 9.7 sec (9.3-11.0)
[2022-11-19 16:01] LABS: Bacteria Moderate HPF (Negative); Crystals Negative HPF (Negative); Epithelial Cells Rare HPF (Negative); Mucus Negative (Negative); RBC Negative HPF (0-2); WBC Negative HPF (0-5)
[2022-11-19 16:02] LABS: C & S Indicated? Yes; Casts Negative LPF (Negative)
[2022-11-19 16:03] LABS: ALT 27 U/L (14-59); AST 13 U/L (15-37); Albumin 4.5 g/dL (3.4-5.0); Alkaline Phosphatase 66 U/L (46-116); BUN 10 mg/dL (7-18); Bilirubin, Total 0.3 mg/dL (0.2-1.0); CREATININE 0.8 mg/dL (0.55-1.02); Calcium 10.2 mg/dL (8.5-10.1); Chloride 101 mmol/L (98-107); Glucose 93 mg/dL (74-106); Magnesium 1.9 mg/dL (1.8-2.4); NT-proBNP 25 pg/mL (<300); Potassium 3.4 mmol/L (3.5-5.1); Sodium 137 mmol/L (136-145); TSH (W/Ref FT4) 1.32 uIU/mL (0.36-3.74); Total Protein 9.2 g/dL (6.4-8.2)
[2022-11-19 16:05] LABS: *AMPHETAMINES SCREEN URINE Negative (Negative); *BARBITURATES SCREEN URINE Negative (Negative); *BENZODIAZEPINES SCREEN URINE Negative (Negative); Cannabinoids THC Negative (Negative); Cocaine Screen,Urine Negative (Negative); METHADONE URINE SCREEN Negative (Negative); OPIATES URINE SCREEN Negative (Negative)
[2022-11-19 16:08] LABS: Troponin I < 50 ng/L (<or=60)
[2022-11-19 16:09] LABS: Tricyclic Antidepressants Negative (Negative)
[2022-11-19] MEDS: Cefpodoxime 200 MG TAB PO (17:02)
--- NOTE | 2022-11-19 17:30 | NUR.NOTE ---
Referral to [facility] for tachycardia w/symptoms, within 1 week to Care ManagementNursing Note:
== END 2022-11-19 17:32 | disposition home or self-care (01) ==
PROVIDERS: Emergency Provider Emergency Medicine; PCP Nurse Practitioner Family
DX: R55 Syncope and collapse (principal); N39.0 Urinary tract infection, site not specified; B96.20 Unspecified Escherichia coli [E. coli] as the cause of diseases classified elsewhere; F17.210 Nicotine dependence, cigarettes, uncomplicated; R00.0 Tachycardia, unspecified
CPT/HCPCS: 36415; 80053; 80307; 87077; 93005; 99283; 81003; 81015; 83735; 83880; 84443; 84484; 85025; 85610; 85730; 87086; 87186; 93010

== ENCOUNTER 2022-11-23 08:13 | Outpatient (RCR) | payer BC, SELFPAY | END 2022-12-15 23:59 | disposition home or self-care (01) | LOC: CARDOPNVT 08:13 | PROVIDERS: PCP Nurse Practitioner Family; Visit Provider Nurse Practitioner Family | DX: R00.2 Palpitations (principal) | CPT/HCPCS: 93226 ==

== ENCOUNTER 2022-11-23 08:13 | Outpatient (RCR) | payer BC, SELFPAY | END 2022-12-15 23:59 | disposition home or self-care (01) | LOC: CARDOPNVT 08:13 | PROVIDERS: PCP Nurse Practitioner Family; Visit Provider Nurse Practitioner Family | DX: R69 Illness, unspecified (principal) ==

== ENCOUNTER 2022-11-23 09:46 | Outpatient (RCR) | payer BC, SELFPAY | END 2022-12-15 23:59 | disposition home or self-care (01) | LOC: CARDOPNVT 09:46 | PROVIDERS: PCP Nurse Practitioner Family; Visit Provider Nurse Practitioner Family | DX: R07.89 Other chest pain (principal) ==

== ENCOUNTER 2022-11-23 20:45 | Outpatient (REF) | payer BC, SELFPAY ==
[2022-11-23 21:07] LABS: Abs Immature Grans 0.01 10^3/uL (0.0-0.06); Absolute Basophil Count 0.06 10^3/uL (0.0-0.2); Absolute Eosinophil Count 0.22 10^3/uL (0.0-0.7); Absolute Lymphocyte Count 2.75 10^3/uL (1.2-3.4); Absolute Monocyte Count 0.61 10^3/uL (0.1-0.8); Basophils % 0.9; Eosinophils % 3.1; HGB 13.9 g/dL (11.2-15.7); Immature Grans % 0.1; MCH 27.8 pg (27.0-33.0); MCHC 34.8 % (32.0-36.0); MCV 80 fL (80-95); MPV 11.1 fL (8.0-11.0); Monocytes % 8.7; Neutrophils % 48.2; Platelet Count 339 10^3/uL (130-400); RDW 11.9 % (11.7-14.6); RDW-SD 34.5 fL; WBC 7.05 10^3/uL (4.4-10.8)
[2022-11-23 21:12] LABS: Anion Gap 9.6 mmol/L (3-11); BUN 13 mg/dL (7-18); CO2 27.4 mmol/L (21.0-32.0); CREATININE 0.8 mg/dL (0.55-1.02); Calcium 9.6 mg/dL (8.5-10.1); Chloride 102 mmol/L (98-107); Glucose 94 mg/dL (74-106); Potassium 4.4 mmol/L (3.5-5.1); Sodium 139 mmol/L (136-145)
== END 2022-11-23 20:46 | disposition home or self-care (01) ==
LOC: LBN 20:45
PROVIDERS: PCP Nurse Practitioner Family; Visit Provider Nurse Practitioner Family
DX: N39.0 Urinary tract infection, site not specified (principal); R00.0 Tachycardia, unspecified
CPT/HCPCS: 80048; 85025

== ENCOUNTER 2023-03-04 09:55 | Outpatient (RCR) | payer BC, SELFPAY | END 2023-03-17 23:59 | disposition home or self-care (01) | LOC: CARDOPNVT 09:55 | PROVIDERS: PCP Nurse Practitioner Family; Visit Provider Nurse Practitioner Family | DX: R07.89 Other chest pain (principal) ==

== ENCOUNTER 2023-03-04 09:55 | Outpatient (RCR) | payer BC, SELFPAY | END 2023-03-17 23:59 | disposition home or self-care (01) | LOC: CARDOPNVT 09:55 | PROVIDERS: PCP Nurse Practitioner Family; Visit Provider Nurse Practitioner Family | DX: R07.9 Chest pain, unspecified (principal) ==

== ENCOUNTER 2023-05-20 12:22 | Outpatient (REF) | payer BC, SELFPAY ==
[2023-05-20 13:18] LABS: Abs Immature Grans 0.02 10^3/uL (0.0-0.06); Absolute Basophil Count 0.05 10^3/uL (0.0-0.2); Absolute Eosinophil Count 0.14 10^3/uL (0.0-0.7); Absolute Lymphocyte Count 2.05 10^3/uL (1.2-3.4); Absolute Monocyte Count 0.66 10^3/uL (0.1-0.8); Absolute Neutrophil Count 3.62 10^3/uL (1.2-6.7); Basophils % 0.8; Eosinophils % 2.1; HCT 39.7 % (36.0-46.0); HGB 13.3 g/dL (11.2-15.7); Immature Grans % 0.3; Lymphocytes % 31.3; MCH 27.4 pg (27.0-33.0); MCHC 33.5 % (32.0-36.0); MCV 82 fL (80-95); MPV 11.1 fL (8.0-11.0); Monocytes % 10.1; Neutrophils % 55.4; Platelet Count 281 10^3/uL (130-400); RBC 4.86 10^6/uL (3.93-5.22); RDW-SD 35.9 fL; WBC 6.54 10^3/uL (4.4-10.8)
[2023-05-20 13:21] LABS: ESR 24 mm/hr (0-20)
[2023-05-20 13:46] LABS: ALT 30 U/L (14-59); AST 16 U/L (15-37); Albumin 4.1 g/dL (3.4-5.0); Alkaline Phosphatase 64 U/L (46-116); Amylase 46 U/L (25-115); Anion Gap 9.7 mmol/L (3-11); BUN 10 mg/dL (7-18); Bilirubin, Total 0.5 mg/dL (0.2-1.0); C-Reactive Protein 1.12 mg/dL (<or=0.5); CO2 27.3 mmol/L (21.0-32.0); CREATININE 0.7 mg/dL (0.55-1.02); Calcium 9.4 mg/dL (8.5-10.1); Chloride 104 mmol/L (98-107); Estimated GFR 123.01 (mL/min/1.73m2); Glucose 82 mg/dL (74-106); Lipase 33 U/L (16-77); Potassium 4.5 mmol/L (3.5-5.1); Sodium 141 mmol/L (136-145); Total Protein 7.8 g/dL (6.4-8.2)
== END 2023-05-20 12:23 | disposition home or self-care (01) ==
LOC: LBN 12:22
PROVIDERS: PCP Nurse Practitioner Family; Referring Provider Nurse Practitioner Family; Visit Provider Nurse Practitioner Family
DX: R10.9 Unspecified abdominal pain (principal); N39.0 Urinary tract infection, site not specified; R82.89 Other abnormal findings on cytological and histological examination of urine
CPT/HCPCS: 80053; 83690; 85652; 82150; 85025; 86140; 87086

== ENCOUNTER 2024-05-10 00:31 | Outpatient (CLI) | payer OTHER, SELFPAY ==
--- NOTE | 2024-05-10 06:30 | DI.RAD_ITS ---
Exam(s) XR KNEE RT 3V AP,LAT,NONA EXAM: XR KNEE RT 3V AP,LAT,NONA CLINICAL HISTORY: RT knee pain after injury for 1 month,m25.561. TECHNIQUE: 2D digital imaging was performed. Three views. COMPARISON: No exams were available for comparison FINDINGS: BONES: No acute fracture is present. No bony destructive lesion is seen. JOINTS: The joint spaces are maintained the knee is normally aligned. No joint effusion is seen. SOFT TISSUE: Normal. IMPRESSION: Unremarkable radiographs of the right knee. DATA REPOSITORY: RADIATION DOSE DELIVERED:
--- NOTE | 2024-05-10 07:45 | DI.MRI_ITS ---
Exam(s) MR LOWER JOINT RT WO EXAM: MR LOWER JOINT RT WO CLINICAL HISTORY: RT knee pain after injury for 1 month, rt knee pain, M25.561. TECHNIQUE: Multiplanar multisequence MRI was performed. COMPARISON: CR XR KNEE RT 3V AP,LAT,NONA from 05/10/2024 FINDINGS: BONES: There is no fracture or contusion pattern. JOINTS: A minimal joint effusion is present. Articular cartilage: Patellofemoral joint: Articular cartilage is unremarkable. Medial femoral tibial joint: Articular cartilage is unremarkable. Lateral femoral tibial joint: Articular cartilage is unremarkable. LIGAMENTS/TENDONS: Anterior Cruciate: Unremarkable. Posterior Cruciate: Unremarkable. Medial Collateral:Unremarkable. Lateral Collateral ligament complex: Unremarkable. Extensor mechanism: Unremarkable. Medial retinaculum: Unremarkable. Lateral retinaculum: Unremarkable. Popliteus: Unremarkable. MENISCI: The medial meniscus is unremarkable. The lateral meniscus is unremarkable. MUSCLES: Unremarkable. SOFT TISSUES: Unremarkable. IMPRESSION: Minimal joint effusion. No evidence of ligament tear or meniscal tear. DATA REPOSITORY:
== END 2024-05-10 00:51 ==
PROVIDERS: PCP Nurse Practitioner Family; Visit Provider Nurse Practitioner Family
DX: M25.561 Pain in right knee (principal)
CPT/HCPCS: 73562; 73721

== ENCOUNTER 2024-11-17 04:29 | Outpatient (CLI) | payer OTHER, SELFPAY ==
--- NOTE | 2024-11-17 06:30 | DI.MRI_ITS ---
Exam(s) MR BRAIN WO EXAM: MR BRAIN WO CLINICAL HISTORY: worsening migraines with unintentional weight loss,g43.109,r63.4 TECHNIQUE: Multiplanar multisequence MRI of the brain was performed. COMPARISON: No exams were available for comparison FINDINGS: CEREBRAL PARENCHYMA: There is no evidence of intracranial hemorrhage, mass effect, or shift of midline structures. There are no extra-axial fluid collections. Ventricles are not enlarged or shifted. Is no evidence of cerebellar tonsillar ectopia. There is no significant focal signal abnormality in the cerebellar hemispheres nor within the gómez, midbrain, and thalami. There is no abnormal signal abnormality in the periventricular white matter. There is no evidence of demyelinating disease. There is no significant focal signal abnormality evident on diffusion imaging to suggest acute ischemic event. SWI sequence reveals no evidence of microhemorrhages in the brain. PITUITARY GLAND: No mass nor parasellar abnormality. No obvious abnormality in the cavernous sinuses. FLOW VOIDS: The expected flow void are noted. No evidence of obvious aneurysm nor obvious vascular malformation. PARANASAL SINUSES: The visualized paranasal sinuses appear unremarkable. No obvious finding ORBITS: No obvious findings. IMPRESSION: No significant intracranial findings on this noninfused MRI scan of the brain. DATA REPOSITORY:
== END 2024-11-17 04:49 ==
LOC: DI 04:30
PROVIDERS: PCP Nurse Practitioner Family; Visit Provider Nurse Practitioner Family
DX: G43.109 Migraine with aura, not intractable, without status migrainosus (principal); R63.4 Abnormal weight loss
CPT/HCPCS: 70551

== ENCOUNTER 2024-12-05 12:16 | Outpatient (REF) | payer OTHER, SELFPAY ==
[2024-12-05 21:34] LABS: TSH (W/Ref FT4) 1.08 uIU/mL (0.36-3.74)
== END 2024-12-05 12:17 | disposition home or self-care (01) ==
LOC: LBN 12:16
PROVIDERS: PCP Nurse Practitioner Family; Visit Provider Nurse Practitioner Family
DX: Z00.00 Encounter for general adult medical examination without abnormal findings (principal); R63.4 Abnormal weight loss; G43.109 Migraine with aura, not intractable, without status migrainosus
CPT/HCPCS: 84443